=== PATIENT | male | born 1940 | race Caucasian/White ===

== ENCOUNTER 2019-02-17 10:48 | Observation (INO) | payer MEDICARE ==
[2019-02-17 11:53] LABS: Absolute Lymphocytes (CBC) 0.9 K/uL (0.7-4.9); Basophils % 1.4 % (0-1.3); Hematocrit 39.1 % (39.6-49.0); Lymphocytes % 13.1 % (15.3-44.8); MPV 9.3 fL (7.6-11.3)
[2019-02-17] MEDS ORDERED: ASPIRIN 81 MG CHEWABLE TABLET ONE (11:57)
[2019-02-17] MEDS ORDERED: DIGOXIN 0.25 MG/ML AMP ONE (11:57)
--- NOTE | 2019-02-17 11:59 | RAD REPORT ---
EXAM DESCRIPTION: RAD - Chest Pa And Lat (2 Views) - 02/17/2019 11:51 am CLINICAL HISTORY: PALPITATIONS Chest pain. COMPARISON: CHEST PA AND LAT 2 VIEW dated 04/07/2014; CHEST SINGLE VIEW dated 06/04/2013; CHEST SINGL E VIEW dated 11/18/2011 TECHNIQUE: PA and lateral views of the chest were obtained. FINDINGS: The lungs are hyperexpanded compatible with COPD. The heart is mildly enlarged in size. No fracture or aggressive bony process. IMPRESSION: COPD without acute process identified.
[2019-02-17 12:09] LABS: Protime INR 0.97
[2019-02-17 12:25] LABS: Albumin 3.1 g/dL (3.4-5.0); Bilirubin Direct 0.2 mg/dL (0-0.2); Bilirubin Total 0.7 mg/dL (0.2-1.0); Magnesium 2.3 mg/dL (1.8-2.4); Potassium 3.9 mmol/L (3.5-5.1); Protein, Total 6.2 g/dL (6.4-8.2); Thyroid Stimulating Hormone 1.68 uIU/mL (0.360-3.740); Troponin (Emerg Dept Use Only) 0.05 ng/mL (0.0-0.045)
--- NOTE | 2019-02-17 12:37 | EKG ---
Test Date: 2019-02-17 Test Time: 10:55:23 Portable Power Tool Repairer: GARETT MEASUREMENT RESULTS: Intervals: Rate: 113 MT: QRSD: 76 QT: 324 QTc: 444 [place]: P: MT: QRS: 10 T: 63 INTERPRETIVE STATEMENTS: Atrial fibrillation with rapid ventricular response with premature ventricular or aberrantly conducted complexes Nonspecific ST and T wave abnormality Abnormal ECG Compared to ECG 06/04/2013 22:05:24 Ventricular premature complex(es) now present ST (T wave) deviation now present Sinus rhythm no longer present Electronically Signed On 02-17-19 12:36:21 CDT by Juan Strickland
[2019-02-17] MEDS ORDERED: METOPROLOL TAR 50 MG TAB ONE (12:45)
[2019-02-17 12:48] LABS: Urine Blood NEGATIVE (NEG); Urine Glucose NEGATIVE (NEG); Urine Protein NEGATIVE (NEG); Urine pH 6.5 (5.0-7.0)
[2019-02-17 12:49] LABS: Urine Bacteria <20 /HPF (NONE SEEN); Urine Culture Reflex Order NOT NEEDED; Urine RBC <5 /HPF (NONE SEEN)
--- NOTE | 2019-02-17 12:55 | ER ---
Nurse's Notes [facility] Name: Shelton Newman Age: 78 yrs Sex: Male : 1940 Arrival Date: 02/17/2019 Time: 10:52 Bed 2 Private MD: Diagnosis: atrial fibrillation with RVR Presentation: 02/17 10:52 Presenting complaint: EMS states: irregular pulse palpated by [place] nurse and pt aa5 was sent here per [place] MD. Pt denies any complaints, denies previous hx of irregular pulse. 10:52 Transition of care: patient was not received from another setting of care. Onset of aa5 symptoms was February 17, 2019. Risk Assessment: Do you want to hurt yourself or someone else? Patient reports no desire to harm self or others. Initial Sepsis Screen: Does the patient meet any 2 criteria? HR > 90 bpm. Does the patient have a suspected source of infection? No. Patient's initial sepsis screen is negative. Care prior to arrival: None. 10:52 Acuity: SEBASTIEN 2 aa5 10:52 Method Of Arrival: EMS: [facility] aa5 Historical: - Allergies: 10:52 Augmentin; aa5 10:52 Oxycodone; aa5 - Home Meds: 10:52 lisinopril-hydrochlorothiazide 20-12.5 mg oral tab 2 tab once daily [Active]; metformin aa5 500 mg Oral Tb24 1 tab once daily [Active]; gabapentin 100 mg oral cap 2 caps [Active]; aspirin 81 mg Oral chew 1 tab PRN [Active]; pramipexole 0.25 mg oral tab at bedtime [Active]; rosuvastatin 10 mg oral tab 1 tab once daily [Active]; buspirone 5 mg Oral tab daily for anxiety [Active]; - PMHx: 10:52 Hypertension; Anxiety; Hyperlipidemia; Diabetes - NIDDM; aa5 - PSHx: 10:52 Hernia repair; Knee surgery; Vasectomy; Elbow surgery; aa5 - Social history:: Smoking status: Patient/guardian denies using tobacco, The patient lives with spouse. - Ebola Screening: : No symptoms or risks identified at this time. - Family history:: not pertinent. - Hospitalizations: : No recent hospitalization is reported. Screenin:19 Abuse screen: Denies threats or abuse. Nutritional screening: No deficits noted. aa5 Tuberculosis screening: No symptoms or risk factors identified. Fall Risk None identified. Assessment: 10:52 General: Appears comfortable, Behavior is calm, cooperative. Pain: Denies pain. Neuro: aa5 Level of Consciousness is awake, alert, obeys commands, Oriented to person, place, time, situation. Cardiovascular: Heart tones S1 S2 present Rhythm is atrial fibrillation with rapid ventricular response. Respiratory: Airway is patent Respiratory effort is even, unlabored, Respiratory pattern is regular, symmetrical. GI: Abdomen is obese. : No signs and/or symptoms were reported regarding the genitourinary system. EENT: No signs and/or symptoms were reported regarding the EENT system. Derm: Skin is pink, warm \T\ dry. Musculoskeletal: Range of motion: intact in all extremities. 11:42 Reassessment: Pt taken to radiology . aa5 12:00 Reassessment: Pt back from radiology, pt assisted to restroom by cable splicing technician at this time. .aa5 12:11 Reassessment: Patient is alert, oriented x 3, equal unlabored respirations, skin aa5 warm/dry/pink. Patient denies pain at this time. Pt placed back in bed. . 12:12 Cardiovascular: Rhythm is atrial fibrillation with rapid ventricular response. aa5 12:30 Reassessment: Pt sitting up in bed eating lunch, pt tolerating well. . aa5 12:51 Reassessment: Patient appears in no apparent distress at this time. Patient and/or ph family updated on plan of care and expected duration. Pain level reassessed. Patient is alert, oriented x 3, equal unlabored respirations, skin warm/dry/pink. Pt sitting up at bedside talking w/ visitors, PO medication administered, pt denies discomfort at this time. 12:52 Cardiovascular: Rhythm is atrial fibrillation with rapid ventricular response. aa5 13:10 Cardiovascular: Rhythm is atrial fibrillation. aa5 14:00 Reassessment: Patient is alert, oriented x 3, equal unlabored respirations, skin aa5 warm/dry/pink. Awaiting room assignment, pt notified of wait time. Family at bedside. . 14:00 Cardiovascular: Rhythm is atrial fibrillation. aa5 15:00 Reassessment: Patient is alert, oriented x 3, equal unlabored respirations, skin aa5 warm/dry/pink. Patient denies pain at this time. Pt sitting up in bed. Pt notified of wait time for transfer to room 229. Unsuccessful attempt to call report to admitting nurse. . 15:00 Cardiovascular: Rhythm is atrial fibrillation. aa5 16:23 Reassessment: Patient is alert, oriented x 3, equal unlabored respirations, skin aa5 warm/dry/pink. Vital Signs: 10:52 BP 124 / 86; Pulse 112; Resp 18 S; Temp 97.9(O); Pulse Ox 95% on R/A; Weight 155.13 kg aa5 (M); Height 5 ft. 10 in. (177.80 cm) (R); Pain 0/10; 12:12 BP 124 / 80; Pulse 110; Resp 20 S; Pulse Ox 96% on R/A; aa5 12:52 BP 124 / 80; Pulse 103; Resp 18; Pulse Ox 96% on R/A; ph 13:10 BP 125 / 81; Pulse 89; Resp 18 S; Pulse Ox 96% on R/A; aa5 14:00 BP 125 / 81; Pulse 98; Resp 18 S; Temp 98.0(TE); Pulse Ox 96% on R/A; Pain 0/10; aa5 15:00 BP 111 / 64; Pulse 76; Resp 18 S; Pulse Ox 96% on R/A; Pain 0/10; aa5 10:52 Body Mass Index 49.07 (155.13 kg, 177.80 cm) aa5 ED Course: 10:52 Patient arrived in ED. aa5 10:52 Arm band placed on Patient placed in an exam room, on a stretcher. EKG completed in aa5 triage. Results shown to MD. 10:52 Patient has correct armband on for positive identification. Placed in gown. Bed in low aa5 position. Call light in reach. Side rails up X2. orthodontic assistant on. Pulse ox on. NIBP on. 10:53 Hazel Ramirez, RN is Primary Nurse. aa5 10:57 Marino Feldman MD is Attending Physician. tx 11:00 EKG done, by windows deployment technician. reviewed by Marino Feldman MD. at1 11:15 Triage completed. aa5 11:19 No provider procedures requiring assistance completed. Patient maintains SpO2 aa5 saturation greater than 95% on room air. 11:40 Initial lab(s) drawn, by me, sent to lab. Inserted saline lock: 20 gauge in right aa5 antecubital area, using aseptic technique. Blood collected. 11:56 Chest Pa And Lat (2 Views) XRAY In Process Unspecified. EDMS 12:53 Reagan Davis MD is Hospitalizing Provider. tx 16:15 Patient admitted, IV remains in place. aa5 Administered Medications: 12:12 Drug: Aspirin Chewable Tablet 324 mg Route: PO; aa5 12:12 Drug: Digoxin 0.5 mg Route: IVP; Site: right antecubital; aa5 12:51 Drug: Metoprolol 100 mg Route: PO; ph 13:57 Drug: Lovenox 1 mg/kg {Note: 100mg to left lower abdomen and 60mg to right lower aa5 abdomen. .} Route: Sub-Q; Site: left lower abdomen; Outcome: 12:54 Decision to Hospitalize by Provider. wa 16:23 Admitted to Tele accompanied by tech, via wheelchair, with chart, Report called to demetrio Mancia RN 16:23 Condition: stable 16:23 Instructed on the need for admit, Demonstrated understanding of instructions. 16:35 Patient left the ED. aa5 Signatures: Dispatcher [employer] EDFL Hazel Ramirez RN RN aa5 Collette Torres, licensed marine engineer EKG Tat1 Mckayla Dash RN RN [facility], MD MORRO Pichardo [place] Corrections: (The following items were deleted from the chart) 16:41 16:15 Admitted to Tele accompanied by tech, via wheelchair, with chart, Report called aa5 to BENOIT Mancia Amy 16:41 16:15 Condition: stable aa aa 16:41 16:15 Instructed on the need for admit, Demonstrated understanding of instructions, aa5 aa 16:41 16:40 Patient left the ED. aa5 aa5
--- NOTE | 2019-02-17 12:56 | EDPHYS ---
Physician Documentation [facility] Name: Shelton Newman Age: 78 yrs Sex: Male : 1940 Arrival Date: 02/17/2019 Time: 10:52 Bed 2 Private MD: ED Physician Marino Feldman HPI: 02/17 12:35 This 78 yrs old Male presents to ER via EMS with complaints of Irregular wa Pulse. 12:35 78 yo M sent here for irregular and fast HR. states was at the [facility] for routine wa check where he was told to come in because his HR is irregular and fast. denies BIGGS, dizziness, chest pain or SOB. denies known h/o same in the past. On review of systems, states get a bit more winded when taking her of his ill the past 3 weeks. otherwise states feels fine. denies palpitations. Onset: The symptoms/episode began/occurred today. Severity of symptoms: At their worst the symptoms were moderate in the emergency department the symptoms are unchanged. The patient has not experienced similar symptoms in the past. The patient has been recently seen by a physician: earlier today, at the [facility]. as noted above under HPI. Historical: - Allergies: 10:52 Augmentin; aa5 10:52 Oxycodone; aa5 - Home Meds: 10:52 lisinopril-hydrochlorothiazide 20-12.5 mg oral tab 2 tab once daily [Active]; metformin aa5 500 mg Oral Tb24 1 tab once daily [Active]; gabapentin 100 mg oral cap 2 caps [Active]; aspirin 81 mg Oral chew 1 tab PRN [Active]; pramipexole 0.25 mg oral tab at bedtime [Active]; rosuvastatin 10 mg oral tab 1 tab once daily [Active]; buspirone 5 mg Oral tab daily for anxiety [Active]; - PMHx: 10:52 Hypertension; Anxiety; Hyperlipidemia; Diabetes - NIDDM; aa5 - PSHx: 10:52 Hernia repair; Knee surgery; Vasectomy; Elbow surgery; aa5 - Social history:: Smoking status: Patient/guardian denies using tobacco, The patient lives with spouse. - Ebola Screening: : No symptoms or risks identified at this time. - Family history:: not pertinent. - Hospitalizations: : No recent hospitalization is reported. ROS: 12:43 Constitutional: Negative for fever, chills, and weight loss, Eyes: Negative for injury, wa pain, redness, and discharge, ENT: Negative for injury, pain, and discharge, Neck: Negative for injury, pain, and swelling, Cardiovascular: Negative for chest pain, palpitations, and edema, Abdomen/GI: Negative for abdominal pain, nausea, vomiting, diarrhea, and constipation, Back: Negative for injury and pain, : Negative for injury, bleeding, discharge, and swelling, MS/Extremity: Negative for injury and deformity, Skin: Negative for injury, rash, and discoloration, Neuro: Negative for headache, weakness, numbness, tingling, and seizure, Psych: Negative for depression, anxiety, suicide ideation, homicidal ideation, and hallucinations. 12:43 Respiratory: Positive for shortness of breath, on exertion. Negative for cough, sputum production, wheezing. 12:43 All other systems are negative. Exam: 12:44 Constitutional: This is a well developed, well nourished patient who is awake, alert, wa and in no acute distress. Head/Face: Normocephalic, atraumatic. Eyes: Pupils equal round and reactive to light, extra-ocular motions intact. Lids and lashes normal. Conjunctiva and sclera are non-icteric and not injected. Cornea within normal limits. Periorbital areas with no swelling, redness, or edema. ENT: Nares patent. No nasal discharge, no septal abnormalities noted. Tympanic membranes are normal and external auditory canals are clear. Oropharynx with no redness, swelling, or masses, exudates, or evidence of obstruction, uvula midline. Mucous membranes moist. Neck: Trachea midline, no thyromegaly or masses palpated, and no cervical lymphadenopathy. Supple, full range of motion without nuchal rigidity, or vertebral point tenderness. No Meningismus. Chest/axilla: Normal chest wall appearance and motion. Nontender with no deformity. No lesions are appreciated. Respiratory: Lungs have equal breath sounds bilaterally, clear to auscultation and percussion. No rales, rhonchi or wheezes noted. No increased work of breathing, no retractions or nasal flaring. Abdomen/GI: Soft, non-tender, with normal bowel sounds. No distension or tympany. No guarding or rebound. No evidence of tenderness throughout. Back: No spinal tenderness. No costovertebral tenderness. Full range of motion. Skin: Warm, dry with normal turgor. Normal color with no rashes, no lesions, and no evidence of cellulitis. MS/ Extremity: Pulses equal, no cyanosis. Neurovascular intact. Full, normal range of motion. Neuro: Awake and alert, GCS 15, oriented to person, place, time, and situation. Cranial nerves II-XII grossly intact. Motor strength 5/5 in all extremities. Sensory grossly intact. Cerebellar exam normal. Normal gait. Psych: Awake, alert, with orientation to person, place and time. Behavior, mood, and affect are within normal limits. 12:44 Cardiovascular: Rate: tachycardic, Rhythm: irregularly irregular, Pulses: no pulse deficits are appreciated, Heart sounds: normal, Edema: is not appreciated, JVD: is not appreciated. 12:44 Respiratory: the patient does not display signs of respiratory distress, Respirations: normal, Breath sounds: are clear throughout, Respiratory rate: normal Vital Signs: 10:52 BP 124 / 86; Pulse 112; Resp 18 S; Temp 97.9(O); Pulse Ox 95% on R/A; Weight 155.13 kg aa5 (M); Height 5 ft. 10 in. (177.80 cm) (R); Pain 0/10; 12:12 BP 124 / 80; Pulse 110; Resp 20 S; Pulse Ox 96% on R/A; aa5 12:52 BP 124 / 80; Pulse 103; Resp 18; Pulse Ox 96% on R/A; ph 13:10 BP 125 / 81; Pulse 89; Resp 18 S; Pulse Ox 96% on R/A; aa5 14:00 BP 125 / 81; Pulse 98; Resp 18 S; Temp 98.0(TE); Pulse Ox 96% on R/A; Pain 0/10; aa5 15:00 BP 111 / 64; Pulse 76; Resp 18 S; Pulse Ox 96% on R/A; Pain 0/10; aa5 10:52 Body Mass Index 49.07 (155.13 kg, 177.80 cm) aa5 MDM: 10:57 Patient medically screened. wa 12:45 Differential Diagnosis pt in afib RVR of unknown duration. will attempt rate lowering wa with meds. may be conversion? will work to exclude other acute illnesses. 12:48 Data reviewed: vital signs, nurses notes, lab test result(s), EKG, radiologic studies. wi Test interpretation: by ED physician or midlevel provider: labs noted for nml TSH. nml CBC. Cl 111. glu 126. BNP 1142. mild trop elevation at 0.05. 12:50 Physician consultation: Reagan Davis MD was called at 12:51. ED course: pt given dig wa and metoprolol. ASA given. will admit for further cardiac eval. . 13:43 Test interpretation: by ED physician or midlevel provider: CXR noted for COPD. no acute wa process.. Response to treatment: the patient's symptoms have markedly improved after treatment, HR in 80s and 90s. still afib but rate controlled. 02/17 11:36 Order name: Basic Metabolic Panel; Complete Time: 12:47 02/17 11:36 Order name: CBC with Diff; Complete Time: 12:18 02/17 11:36 Order name: LFT's; Complete Time: 12:47 02/17 11:36 Order name: Magnesium; Complete Time: 12:48 02/17 11:36 Order name: NT PRO-BNP; Complete Time: 12:47 02/17 11:36 Order name: PT-INR; Complete Time: 12:18 02/17 11:36 Order name: Troponin (emerg Dept Use Only); Complete Time: 12:48 02/17 11:37 Order name: Chest Pa And Lat (2 Views) XRAY; Complete Time: 12:18 02/17 11:37 Order name: Urine Microscopic Only; Complete Time: 12:53 02/17 11:37 Order name: TSH; Complete Time: 12:47 02/17 12:13 Order name: Urine Dipstick--Ancillary (enter results); Complete Time: 12:53 bd 02/17 11:21 Order name: Diet Ada 1800 Lanre; Complete Time: 11:21 aa5 02/17 11:36 Order name: EKG; Complete Time: 11:37 02/17 11:36 Order name: Cardiac monitoring; Complete Time: 11:37 02/17 11:36 Order name: EKG - Nurse/Tech; Complete Time: 11:37 02/17 11:36 Order name: IV Saline Lock; Complete Time: 11:45 wi 02/17 11:36 Order name: Labs collected and sent; Complete Time: 11:45 wi 02/17 11:36 Order name: O2 Per Protocol; Complete Time: 11:37 wi 02/17 11:36 Order name: O2 Sat Monitoring; Complete Time: 11:37 wi 02/17 11:37 Order name: Urine Dipstick-Ancillary (obtain specimen); Complete Time: 12:35 wi Administered Medications: 12:12 Drug: Aspirin Chewable Tablet 324 mg Route: PO; aa5 12:12 Drug: Digoxin 0.5 mg Route: IVP; Site: right antecubital; aa5 12:51 Drug: Metoprolol 100 mg Route: PO; ph 13:57 Drug: Lovenox 1 mg/kg {Note: 100mg to left lower abdomen and 60mg to right lower aa5 abdomen. .} Route: Sub-Q; Site: left lower abdomen; Disposition: 02/17/19 12:54 Hospitalization ordered by Reagan Davis for Inpatient Admission. Preliminary diagnosis is atrial fibrillation with RVR. - Bed requested for Telemetry/MedSurg (Inpatient). - Status is Inpatient Admission. aa5 - Condition is Fair. - Problem is new. - Symptoms have improved. UTI on Admission? No Critical care time excluding procedures: 13:45 Critical care time: Bedside Care: 15 minutes, Consultation: 5 minutes, Family wa Intervention: 10 minutes. Total time: 30 minutes Signatures: Dispatcher [employer] EDMS Christel Bhardwaj Audri, RN RN [facility] Mckayla Dash RN RN [facility], MD MORRO Pichardo [place] Corrections: (The following items were deleted from the chart) 14:12 12:54 Hospitalization Ordered by Reagan Davis MD for Inpatient Admission. Preliminary bd diagnosis is atrial fibrillation with RVR. Bed requested for Telemetry/MedSurg (Inpatient). Status is Inpatient Admission. Condition is Fair. Problem is new. Symptoms have improved. UTI on Admission? No. wi 16:40 14:12 02/17/2019 12:54 Hospitalization Ordered by Reagan Davis MD for Inpatient aa5 Admission. Preliminary diagnosis is atrial fibrillation with RVR. Bed requested for Telemetry/MedSurg (Inpatient). Status is Inpatient Admission. Condition is Fair. Problem is new. Symptoms have improved. UTI on Admission? No. bd
[2019-02-17] MEDS ORDERED: ENOXAPARIN 100 MG/ML SYR SQ ONE (13:51)
[2019-02-17] MEDS ORDERED: ENOXAPARIN 60 MG/0.6 ML SQ ONE (13:51)
[2019-02-17] MEDS ORDERED: METOPROLOL TARTRATE 5 MG/5 ML INJ IV PRN (16:42)
[2019-02-17] MEDS ORDERED: ONDANSETRON 4 MG/2 ML VIAL IV PRN (16:42)
[2019-02-17] MEDS ORDERED: ACETAMINOPHEN 500 MG TAB PO PRN (16:42)
[2019-02-17] MEDS: INSULIN -REGULAR HUMAN 50 UNIT/0.5 ML ML SQ SCH ×2 (16:42→21:00)
[2019-02-17 16:49] VITALS: BMI 35.3
[2019-02-17] MEDS ORDERED: BUSPIRONE HCL 5 MG TABLET PO PRN (17:03)
[2019-02-17] MEDS: METOPROLOL TAR 25 MG TAB PO SCH (17:50)
[2019-02-17] MEDS: NA CHLORIDE 0.9% 1,000 ML IV SCH (17:51)
[2019-02-17] MEDS ORDERED: ENOXAPARIN 100 MG/ML SYR SQ SCH (21:00)
[2019-02-17] MEDS ORDERED: ENOXAPARIN 60 MG/0.6 ML SQ SCH (21:00)
[2019-02-17] MEDS ORDERED: PRAMIPEXOLE 0.25 MG TAB PO SCH (21:00)
[2019-02-17] MEDS ORDERED: ROSUVASTATIN 10 MG TAB PO SCH (21:00)
[2019-02-17] MEDS: Enoxaparin 120 MG/0.8 ML SYR SQ SCH (21:37)
--- NOTE | 2019-02-18 00:49 | HP ---
Date of Admission: 02/17/2019 Primary Care Physician: POLO. Chief Complaint: Abnormal heart rhythm. Code status: full History Of Present Illness: Patient is a 78-year-old male with past medical history of hypertension, diabetes, sleep apnea, restless legs syndrome, hyperlipidemia, generalized anxiety disorder, comes in to the hospital from the [place] for atrial fibrillation with RVR. Rate was in the 120s. Patient does not have a history of AFib, was at the [place] for routine lab work. Patient does report some shortness of breath with minimal exertion and diaphoresis. Denies any significant palpitations. No chest pain. Patient's symptoms are constant, moderate, progressively worsening. His workup revealed a troponin of 0.05 and TSH was normal as was the magnesium level. Patient was given digoxin x1, metoprolol, and referred for admission. Past Medical History: Diabetes mellitus type 2 with neuropathy; obstructive sleep apnea, on CPAP; restless legs syndrome; hypertension; hyperlipidemia; generalized anxiety disorder. Surgical History: Knee surgery and replacements on both sides, hernia replacement. Allergies: AUGMENTIN AND OXYCODONE. Medications: List reviewed. Family History: No premature history of coronary artery disease in the family. Social History: Patient quit smoking when he was 51 years old. Drinks alcohol rarely. Review of Systems: 10-point system reviewed, negative except as per HPI. Physical Examination: Vital Signs: Blood pressure 124/86, pulse 112, respirations 18, temperature 97.9, O2 95% on room air. General: Awake, alert, oriented x3, morbidly obese male, BMI 49, in some mild distress. HEENT: Normocephalic, atraumatic. PERRLA. EOMI. Moist mucous membranes. Oropharynx is clear. Poor dentition. Conjunctivae anicteric. Neck: Supple. No JVD. Trachea midline. CV: S1, S2. Irregularly irregular. Peripheral pulses present. Respiratory: Moving air well bilaterally. No wheezing or stridor. No use of accessory muscles. Gastrointestinal: Abdomen is soft, nontender, nondistended. Positive bowel sounds. No guarding or rigidity. Extremities: No clubbing, cyanosis. Patient has 2+ edema of bilateral lower extremities. No calf tenderness. Neuro: Cranial nerves 2 through 12 intact grossly. No focal neurological deficits. Speech is normal. Psych: Mood is okay. Affect is full. Insight and judgment are good. Skin: No rashes. Normal skin turgor. Patient does have some ecchymosis on his upper extremities. Laboratory Data: UA is negative. Sodium 144, potassium 3.9, chloride 111, CO2 30, BUN 19, creatinine 0.9, glucose 126, calcium 8.5. Magnesium 2.3. Troponin 0.05. BNP 1142. TSH is 1.68. INR 0.97. WBC 7.2, H and H 13.3 and 39.1, platelets 194, neutrophils 76%. Chest x-ray personally reviewed, shows COPD without acute process identified, lungs hyperexpanded. EKG shows AFib with RVR , rate of 113, nonspecific ST-T wave abnormalities. Assessment: 78-year-old male with: 1. New-onset atrial fibrillation with rapid ventricular response, improved with digoxin and metoprolol. We will start on rate control and Lovenox for prophylaxis. Cardiology has been consulted. Patient has seen Dr. Strickland in the past. We will obtain echocardiogram. Magnesium level is normal. TSH is normal as well. May be related to his longstanding sleep apnea, which was untreated. 2. Essential hypertension, stable. We will resume home medications as appropriate. 3. Mixed hyperlipidemia. Continue statin. 4. Generalized anxiety disorder. Continue buspirone. 5. Restless legs syndrome. Continue pramipexole. Stable. 6. Obstructive sleep apnea. We will ask patient to bring in his own CPAP at night. 7. Diabetes mellitus type 2 with hyperglycemia and neuropathy. We will continue with sliding scale insulin. Monitor blood glucose levels. 8. Morbid obesity. BMI of 49. Plan: Admit patient to [facility], [facility] as observation. NAWAF Voice ID: [id number]
--- NOTE | 2019-02-18 00:58 | CON ---
Date of Consultation: 02/17/[address] Davis's service on 02/17/2019. I saw the patient on 02/17/2019. Reason For Consultation: Atrial fibrillation. History Of Present Illness: Mr. Newman is a 78-year-old white male. He is a patient at the [facility]. He went there for a routine checkup and was noted to be in atrial fibrillation, and was sent to the emergency room for admission. Mr. Newman has been complaining of some dyspnea on exertion, but no chest pain. No nausea, vomiting, diaphoresis, PND, orthopnea, pedal edema, palpitation, or syncop e. He is really asymptomatic from an atrial fibrillation standpoint. He does not have any palpitati ons with that. Past Medical History: Includes diabetes, hypertension, dyslipidemia, anxiety, obesity, and sleep system configuration specialist ea. Review of Systems: Negative. Social History: Negative for tobacco. Family History: Negative for heart disease. Medications: Include aspirin, lisinopril, buspirone, metformin, Zocor, and hydrochlorothiazide. Physical Examination: Vital signs: Mr. Newman is over 300 pounds. He is in atrial fibrillation, rate of 110. General: He is in no acute distress. HEENT: Negative. Neck: Supple with no bruit. Chest: Clear. Cardiac: Reveals atrial fibrillation. Abdomen: Obese, but benign. Extremities: Reveal no clubbing, cyanosis, or edema. Skin: Dry and intact. Neurologic: He is nonfocal. Pulses are present distally bilaterally. Diagnostic Data: He had a troponin of 0.05. BNP was 1142. Chest x-ray showed COPD. EKG showed atr ial fibrillation. Rest of the blood work was normal. Impression And Plan: 1.Atrial fibrillation of unknown duration. The patient does not have any palpitation with that. He is to be on Lovenox for now and a beta-cristian. We can switch him to metoprolol and one of the anti coagulants, preferably Eliquis 5 mg b.i.d. If his rate is controlled and he is asymptomatic, we can send him home on metoprolol and Eliquis, and then see how he does with that down the road. We cannot cardiovert him for at least 3 weeks after being placed on Eliquis. He can go home if his echo is no rmal on metoprolol and Eliquis, and I will see him in the office soon for electric cardioversion in 3 weeks. He may need an outpatient stress test eventually has not had them for a long time. 2.Chronic obstructive pulmonary disease. 3.Allergies to Augmentin and codeine. 4.Obesity. 5.Sleep apnea. 6.Hypertension, well controlled. 7.Diabetes, well controlled. 8.Dyslipidemia, well controlled. 9.Elevated troponin and BNP secondary to rapid atrial fibrillation. We will continue to follow Mr. Newman. We will see what his echo shows. Options beside beta-blockers and Eliquis certainly include cardioversion, sotalol and/or ablation down the road. Personally, I think if he is asymptomatic, I would continue the metoprolol and Eliquis, and plan a cardioversion in 3 weeks. KRISHNA/ELIAZAR Voice ID: [id number] Report ID: [id number]
[2019-02-18] MEDS: NA CHLORIDE 0.9% 1,000 ML IV SCH (04:17)
[2019-02-18] MEDS: METOPROLOL TAR 25 MG TAB PO SCH (05:28)
[2019-02-18 06:14] LABS: Absolute Lymphocytes (CBC) 1.6 K/uL (0.7-4.9); Basophils % 0.5 % (0-1.3); Hematocrit 37.9 % (39.6-49.0); Lymphocytes % 18.6 % (15.3-44.8); MPV 9.8 fL (7.6-11.3); RBC Red Blood Cell Count 4.13 M/uL (4.33-5.43)
[2019-02-18 06:29] LABS: Magnesium 2.3 mg/dL (1.8-2.4); Phosphorus 2.7 mg/dL (2.5-4.9); Potassium 3.7 mmol/L (3.5-5.1)
[2019-02-18] MEDS: INSULIN -REGULAR HUMAN 50 UNIT/0.5 ML ML SQ SCH ×2 (07:30→11:30)
[2019-02-18] MEDS: Enoxaparin 120 MG/0.8 ML SYR SQ SCH (08:27)
[2019-02-18] MEDS ORDERED: GABAPENTIN 100 MG CAP PO SCH (09:00)
[2019-02-18] MEDS ORDERED: LISINOPRIL 20 MG TAB PO SCH (09:00)
[2019-02-18] MEDS ORDERED: hydroCHLOROthiazide 25 MG TAB PO SCH (09:00)
[2019-02-18] MEDS ORDERED: HOME MED 1 EA UNK (Lisinopril [Zestril] 40 MG) PO SCH (09:00)
[2019-02-18] MEDS ORDERED: ASPIRIN 81 MG CHEWABLE TABLET PO SCH (09:00)
[2019-02-18] MEDS ORDERED: POTASSIUM CL SA 10 MEQ TAB PO ONE (09:00)
--- NOTE | 2019-02-18 10:57 | ECHO ---
HEIGHT: 5 ft 11 in WEIGHT: 253 lb 8.506 oz DATE OF STUDY: 02/18/[address]: Reagan Davis MD 2-DIMENSIONAL: YES M.MODE: YES DOPPLER: YES COLOR FLOW: YES TDS: NO PORTABLE: NO DEFINITY: NO BUBBLE STUDY: NO DIAGNOSIS: ATRIAL FIBRILLATION CARDIAC HISTORY: CATHERIZATION: NO SURGERY: NO PROSTHETIC VALVE: NO PACEMAKER: NO MEASUREMENTS (cm) DIASTOLIC (NORMALS) SYSTOLIC (NORMALS) IVSd 1.3 (0.6-1.2) LA Diam 5.6 (1.9-4.0) LVEF 63% LVIDd 4.1 (3.5-5.7) LVIDs 2.7 (2.0-3.5) %FS 33% LVPWd 1.3 (0.6-1.2) Ao Diam 2.7 (2.0-3.7) 2 DIMENSIONAL ASSESSMENT: RIGHT ATRIUM: NORMAL LEFT ATRIUM: DILATED RIGHT VENTRICLE: NORMAL LEFT VENTRICLE: LEFT VENTRICULAR HYPERTROPHY TRICUSPID VALVE: NORMAL MITRAL VALVE: NORMAL PULMONIC VALVE: NORMAL AORTIC VALVE: SCLEROSIS PERICARDIAL EFFUSION: NONE AORTIC ROOT: NORMAL LEFT VENTRICULAR WALL MOTION: NORMAL. DOPPLER/COLOR FLOW: MILD MITRAL, TRICUSPID AND AORTIC REGURGITATION. MILD PULMONARY HYPERTENSION. ESTIMATED RIGHT VENTRICULAR SYSTOLIC PRESSURE 41mmHg. NO AORTIC STENOSIS. COMMENTS: NORMAL LEFT VENTRICULAR EJECTION FRACTION. LEFT VENTRICULAR HYPERTROPHY. DILATED LEFT ATRIUM. AORTIC SCLEROSIS WITH NO AORTIC STENOSIS. MILD AORTIC, MITRAL AND TRICUSPID REGURGITATION. MILD PULMONARY HYPERTENSION. TECHNOLOGIST: SHAILA [facility]
[2019-02-18 12:23] VITALS: O2SAT 97
[2019-02-18 12:26] VITALS: BP 127/67; TEMP 97.1
--- NOTE | 2019-02-19 05:50 | DS ---
Date of Discharge: 02/18/2019 Consultants: Dr. Strickland with Cardiology. Procedures: None. Discharge Diagnoses: 1.Atrial fibrillation with rapid ventricular response, improved. 2.Essential hypertension, stable. 3.Mixed hyperlipidemia, on statin. 4.Generalized anxiety disorder, stable. 5.Restless legs syndrome, stable. 6.Obstructive sleep apnea, on CPAP. 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 8.Morbid obesity, body mass index of 49. 9.Hypertensive heart disease. 10.Mild pulmonary hypertension. Hospital Course: Patient is a 78-year-old male who came into the hospital from the [place] for atrial fib rillation with RVR. Patient did have some shortness of breath and diaphoresis with exertion. Patien t's workup revealed elevated troponin level of 0.05, likely due to the atrial fibrillation no ACS was felt to be the case. Patient's thyroid studies were normal. Electrolytes including magnesium were also normal. The patient had an echocardiogram done and was evaluated by Cardiology. His ejection f raction was 63%. He had some left ventricular hypertrophy and mild pulmonary hypertension along with mild aortic mitral and tricuspid regurg. He also has some aortic sclerosis. Patient does have long standing history of hypertension as well as obstructive sleep apnea and morbid obesity, likely risk f actors leading to atrial fibrillation. He was started on metoprolol. He was given dose of digoxin a nd was started on blood thinners. He remained in atrial fibrillation, however, his rate became contr olled, did not have any further shortness of breath or diaphoresis. He was able to ambulate without difficulty. Plan will be to continue on Eliquis as an outpatient for 3 weeks prior to cardioversion. Patient was then cleared for discharge from cardiology standpoint. Medications: List reviewed. Followup: Follow up with primary care physician in 2-3 days. Follow up lace roller, Dr. Strickland in 2 weeks. Return to ER for worsening condition. Diet: Heart healthy. Activity: As tolerated. Physical Examination: General: Awake, alert, oriented x3. No acute distress. CV: S1, S2. No murmurs. Respiratory: Moving air well bilaterally. Gastrointestinal: Abdomen is soft, nontender, nondistended. Positive bowel sounds. Extremities: No clubbing, cyanosis, or edema. Neurologic: Nonfocal. SA/MODL Voice ID: [id number] Report ID: [id number]
== END 2019-02-18 14:12 | disposition home or self-care (01) ==
LOC: ER 10:48 → ERHOLD 13:17 → 2ND 16:25
PROVIDERS: ADMIT Family Medicine; ATTEND Family Medicine
DX: I48.91 Unspecified atrial fibrillation (principal); I10 Essential (primary) hypertension; E78.2 Mixed hyperlipidemia; F41.1 Generalized anxiety disorder; G25.81 Restless legs syndrome; E11.9 Type 2 diabetes mellitus without complications; G47.33 Obstructive sleep apnea (adult) (pediatric); E11.65 Type 2 diabetes mellitus with hyperglycemia; E66.01 Morbid (severe) obesity due to excess calories; Z68.35 Body mass index [BMI] 35.0-35.9, adult; I11.9 Hypertensive heart disease without heart failure; I27.20 Pulmonary hypertension, unspecified
CPT/HCPCS: 93005; 93306; 85025 ×2; 80048; 36415; 83735 ×2; 84100; 85610; 82947 ×4; 80076; 84443; 84484; 80053; 83880; 71046; 94760 ×2; 94660; 96372; 96374; 99285; J1160; J1650 ×4; J7030 ×2; G0378 ×3; 81003; 81015

== ENCOUNTER 2019-04-20 14:03 | Inpatient (IN) | payer MEDICARE ==
--- NOTE | 2019-04-20 15:31 | RAD REPORT ---
EXAM DESCRIPTION: [place] Single View04/20/2019 2:56 pm CLINICAL HISTORY: fever COMPARISON: January 2019 FINDINGS: Left base is hazy. Main lungs appear clear of acute infiltrate. The heart is markedly enlarged IMPRESSION: Left base is hazy. This could represent a pneumonia or overlying soft tissue. PA and lat eral chest series would be helpful for further evaluation
[2019-04-20] MEDS ORDERED: NA CHLORIDE 0.9% 1,000 ML ONE (15:32)
[2019-04-20] MEDS ORDERED: CEFTRIAXONE/SWI 1gm 2 GM/20 ML SYR ONE (15:32)
[2019-04-20 15:40] LABS: ALT/SGPT 59 U/L (12-78); AST/SGOT 61 U/L (15-37); Absolute Lymphocytes (CBC) 0.4 K/uL (0.7-4.9); Albumin 2.9 g/dL (3.4-5.0); Alkaline Phosphatase 80 U/L (45-117); BUN Blood Urea Nitrogen 16 mg/dL (7-18); Basophils % 0.3 % (0-1.3); Bicarbonate 26 mmol/L (21-32); Bilirubin Direct 0.5 mg/dL (0-0.2); Bilirubin Total 2.1 mg/dL (0.2-1.0); Creatine Phosphokinase 903 U/L (39-308); Glucose Level 129 mg/dL (74-106); Hematocrit 39.8 % (39.6-49.0); Lipase 60 U/L (73-393); Lymphocytes % 2.4 % (15.3-44.8); MPV 9.6 fL (7.6-11.3); Potassium 3.7 mmol/L (3.5-5.1); Protein, Total 6.5 g/dL (6.4-8.2); Sodium Level 139 mmol/L (136-145); Troponin (Emerg Dept Use Only) < 0.02 ng/mL (0.0-0.045)
[2019-04-20 15:43] LABS: Protime INR 2.04
[2019-04-20 15:50] LABS: Urine Blood 2+ (NEG); Urine Glucose NEGATIVE (NEG); Urine Protein 3+ (NEG); Urine Specific Gravity >1.030 (1.005-1.030)
[2019-04-20 16:02] LABS: Urine Bacteria >50 /HPF (NONE SEEN); Urine Culture Reflex Order REFLEXED; Urine RBC <5 /HPF (NONE SEEN)
--- NOTE | 2019-04-20 16:21 | ER ---
Nurse's Notes [facility] Name: Shelton Newman Age: 78 yrs Sex: Male : 1940 Arrival Date: 04/20/2019 Time: 14:05 Bed 5 Private MD: Chan Shaver Diagnosis: Severe sepsis without septic shock;Cystitis Presentation: 04/20 14:32 Presenting complaint: Patient states: ":bladder infection since yesterday morning. " ch dribbling, urgency, frequency, some blood yesterday morning. When I get up and walk around I. Transition of care: patient was not received from another setting of care. Onset of symptoms was April 19, 2019 at 09:00. Risk Assessment: Do you want to hurt yourself or someone else? Patient reports no desire to harm self or others. Initial Sepsis Screen: Does the patient meet any 2 criteria? RR > 20 per min. HR > 90 bpm. Yes Does the patient have a suspected source of infection? Yes: Dysuria/Frequency/Urgency/UTI If YES to both, name of provider notified: Teo MOODY 14:32 Method Of Arrival: Ambulatory 14:32 Acuity: SEBASTIEN 3 ch 14:39 Care prior to arrival: None. 14:47 Note a code sepsis has been called. sg Historical: - Allergies: 14:39 Augmentin; ch 14:39 Oxycodone; ch - Home Meds: 14:39 aspirin 81 mg Oral chew 1 tab PRN [Active]; buspirone 5 mg Oral tab daily for anxiety ch [Active]; gabapentin 100 mg Oral cap 2 caps [Active]; Hydrochlorothiazide Oral [Active]; lisinopril-hydrochlorothiazide 20-12.5 mg Oral tab 2 tab once daily [Active]; metformin 500 mg Oral Tb24 1 tab once daily [Active]; pramipexole 0.25 mg Oral tab at bedtime [Active]; rosuvastatin 10 mg Oral tab 1 tab once daily [Active]; - PMHx: 14:39 Anxiety; Diabetes - NIDDM; Hyperlipidemia; Hypertension; ch - PSHx: 14:39 Hernia repair; Knee surgery; Vasectomy; Elbow surgery; - Immunization history:: Adult Immunizations up to date, Flu vaccine is not up to date. - Social history:: Smoking status: Patient/guardian denies using tobacco. - Ebola Screening: : Patient negative for fever greater than or equal to 101.5 degrees Fahrenheit, and additional compatible Ebola Virus Disease symptoms Patient denies exposure to infectious person Patient denies travel to an Ebola-affected area in the 21 days before illness onset No symptoms or risks identified at this time. Screenin:09 Abuse screen: Denies threats or abuse. Denies injuries from another. Nutritional ch screening: No deficits noted. Tuberculosis screening: No symptoms or risk factors identified. Fall Risk None identified. Assessment: 15:07 General: Appears in no apparent distress. uncomfortable, Behavior is cooperative, ch appropriate for age. Pain: Complains of pain in low back area Pain currently is 3 out of 10 on a pain scale. Neuro: No deficits noted. Cardiovascular: Rhythm is atrial fibrillation. Respiratory: Airway is patent Respiratory effort is even, unlabored. GI: Abdomen is round non-distended, Bowel sounds present X 4 quads. Abd is soft X 4 quads Abdomen is tender to palpation in suprapubic area. : Genitalia appear normal Reports pain urgency, urinary frequency. Derm: Skin is dry, Skin is normal, Skin temperature is hot. Musculoskeletal: Reports weakness in head, neck, chest, right arm, left arm, right leg and left leg, generalized. 15:54 Reassessment: Patient appears in no apparent distress at this time. No changes from previously documented assessment. Patient and/or family updated on plan of care and expected duration. Pain level reassessed. 17:00 Reassessment: Patient appears in no apparent distress at this time. Patient and/or family updated on plan of care and expected duration. Pain level reassessed. pt has BM on BSC, transfers to and from bed with assistance. no s/s of distress, verb understanding of wait for admission. pt has eaten some dinner. Patient states feeling better. Patient states symptoms have improved. 19:31 Reassessment: Patient is alert, oriented x 3, equal unlabored respirations, skin bb warm/dry/pink. pt sitting on side on bed, galvez catheter in place to bedside drain, IV site intact, pt awaiting report called for room 220. 19:51 Reassessment: report called to Chioma LABOY for room 220. bb Vital Signs: 14:39 BP 125 / 77; Pulse 112; Resp 24; Temp 99.1(O); Pulse Ox 94% on R/A; Weight 145.15 kg; ch Height 5 ft. 11 in. (180.34 cm); Pain 0/10; 15:09 BP 114 / 75; Pulse 86; Resp 21; Pulse Ox 98% on R/A; Pain 3/10; ch 15:54 BP 120 / 74; Pulse 102; Resp 30 S; Temp 98.9(O); Pulse Ox 98% on R/A; Pain 2/10; ch 17:31 BP 116 / 76; Pulse 99; Resp 26; Temp 98.9; Pulse Ox 99% on R/A; Pain 2/10; ch 18:30 BP 116 / 69; Pulse 110; Resp 27; Temp 98.8(O); Pulse Ox 96% ; ch 19:46 BP 141 / 68; Pulse 111; Resp 16 S; Temp 98.3(O); Pulse Ox 99% on R/A; bb 14:39 Body Mass Index 44.63 (145.15 kg, 180.34 cm) ch ED Course: 14:05 Patient arrived in ED. mr 14:06 Jl Edward MD is Private Physician. mr 14:06 Chan Shaver DO is Private Physician. mr 14:32 Tanya Richardson, BENOIT is Primary Nurse. ch 14:34 Teo Ramírez PA is PHCP. jr8 14:34 Tha Felton MD is Attending Physician. jr8 14:34 Triage completed. ch 14:39 Arm band placed on right wrist. Patient placed in an exam room. ch 14:57 Chest Single View XRAY In Process Unspecified. EDMS 15:00 First set of blood cultures drawn by me. jb1 15:04 Initial lab(s) drawn, by me, sent to lab. Inserted saline lock: 22 gauge in right jb1 antecubital area, using aseptic technique. Blood collected. 15:09 Patient has correct armband on for positive identification. Placed in gown. Bed in low ch position. Call light in reach. Side rails up X2. Adult w/ patient. quality assurance monitor final on. Pulse ox on. NIBP on. Warm blanket given. Pillow given. 15:09 No provider procedures requiring assistance completed. ch 15:41 Urine collected: Galvez catheter specimen, cloudy, elan colored. jb1 15:55 Galvez cath inserted, using sterile technique, 16 Fr., by nd, balloon inflated, to gravity drainage, urine specimen collected. returned elan urine. Patient tolerated well. 16:19 Reagan Davis MD is Hospitalizing Provider. jr8 19:52 Patient admitted, IV remains in place. bb Administered Medications: 15:34 Drug: Rocephin 2 grams Route: IV; Rate: calculated rate; Site: right antecubital; jl7 15:45 Follow up: IV Status: Completed infusion; IV Intake: 10ml 15:34 Drug: NS 0.9% 1000 ml Route: IV; Rate: 1000 ml; Site: right antecubital; jl7 16:20 Follow up: IV Status: Completed infusion; IV Intake: 1000ml Point of Care Testing: Blood Glucose: 15:00 Blood Glucose: 142 mg/dL; jl7 Ranges: Intake: 15:45 IV: 10ml; Total: 10ml. ch 16:20 IV: 1000ml; Total: 1010ml. Outcome: 16:20 Decision to Hospitalize by Provider. jr8 19:51 Admitted to Tele bb 19:51 Admitted to Tele accompanied by tech, family with patient, via stretcher, room 220, with chart, Report called to Chioma RN 19:51 Condition: stable 19:51 Instructed on the need for admit. 20:03 Patient left the ED. bb Signatures: Dispatcher [employer] EDMS Will Quiroz jb1 Tanya Richardson RN RN Bishnu Peña RN RN Ly Barragan Brenda RN RN Teo Ramírez PA PA jr8 Isabella New RN RN jl7 Corrections: (The following items were deleted from the chart) 14:47 14:32 Note a code sepsis has been called [facility] 15:54 14:32 Initial Sepsis Screen: Does the patient meet any 2 criteria? No. Patient's initial sepsis screen is negative. Does the patient have a suspected source of infection? No. Patient's initial sepsis screen is negative.
--- NOTE | 2019-04-20 16:22 | EDPHYS ---
Physician Documentation [facility] Name: Shelton Newman Age: 78 yrs Sex: Male : 1940 Arrival Date: 04/20/2019 Time: 14:05 Bed 5 Private MD: Chan Shaver ED Physician Tha Felton HPI: 04/20 16:04 This 78 yrs old Male presents to ER via Ambulatory with complaints of Urinary jr8 Problem. 16:04 The patient presents with urinary symptoms, dysuria, hematuria. Onset: The jr8 symptoms/episode began/occurred acutely, yesterday. Modifying factors: The symptoms are alleviated by nothing, the symptoms are aggravated by urinating. Associated signs and symptoms: Pertinent positives: fever, weakness and fatigue. Severity of symptoms: At their worst the symptoms were moderate, in the emergency department the symptoms are unchanged. The patient has not experienced similar symptoms in the past. The patient has not recently seen a physician. Historical: - Allergies: 14:39 Augmentin; 14:39 Oxycodone; - Home Meds: 14:39 aspirin 81 mg Oral chew 1 tab PRN [Active]; buspirone 5 mg Oral tab daily for anxiety ch [Active]; gabapentin 100 mg Oral cap 2 caps [Active]; Hydrochlorothiazide Oral [Active]; lisinopril-hydrochlorothiazide 20-12.5 mg Oral tab 2 tab once daily [Active]; metformin 500 mg Oral Tb24 1 tab once daily [Active]; pramipexole 0.25 mg Oral tab at bedtime [Active]; rosuvastatin 10 mg Oral tab 1 tab once daily [Active]; - PMHx: 14:39 Anxiety; Diabetes - NIDDM; Hyperlipidemia; Hypertension; ch - PSHx: 14:39 Hernia repair; Knee surgery; Vasectomy; Elbow surgery; ch - Immunization history:: Adult Immunizations up to date, Flu vaccine is not up to date. - Social history:: Smoking status: Patient/guardian denies using tobacco. - Ebola Screening: : Patient negative for fever greater than or equal to 101.5 degrees Fahrenheit, and additional compatible Ebola Virus Disease symptoms Patient denies exposure to infectious person Patient denies travel to an Ebola-affected area in the 21 days before illness onset No symptoms or risks identified at this time. ROS: 16:04 ENT: Negative for injury, pain, and discharge, Neck: Negative for injury, pain, and jr8 swelling, Cardiovascular: Negative for chest pain, palpitations, and edema, Respiratory: Negative for shortness of breath, cough, wheezing, and pleuritic chest pain, Back: Negative for injury and pain, MS/Extremity: Negative for injury and deformity, Skin: Negative for injury, rash, and discoloration, Neuro: Negative for headache, weakness, numbness, tingling, and seizure. 16:04 Constitutional: Positive for fever, malaise. 16:04 Abdomen/GI: Positive for abdominal pain, Negative for nausea, vomiting, and diarrhea. 16:04 : Positive for urinary symptoms, hematuria, Negative for penile discharge, penile pain, testicular pain Exam: 16:04 Eyes: Pupils equal round and reactive to light, extra-ocular motions intact. Lids and jr8 lashes normal. Conjunctiva and sclera are non-icteric and not injected. Cornea within normal limits. Periorbital areas with no swelling, redness, or edema. ENT: Nares patent. No nasal discharge, no septal abnormalities noted. Tympanic membranes are normal and external auditory canals are clear. Oropharynx with no redness, swelling, or masses, exudates, or evidence of obstruction, uvula midline. Mucous membranes moist. Neck: Trachea midline, no thyromegaly or masses palpated, and no cervical lymphadenopathy. Supple, full range of motion without nuchal rigidity, or vertebral point tenderness. No Meningismus. Abdomen/GI: Soft, non-tender, with normal bowel sounds. No distension or tympany. No guarding or rebound. No evidence of tenderness throughout. Back: No spinal tenderness. No costovertebral tenderness. Full range of motion. Skin: Warm, dry with normal turgor. Normal color with no rashes, no lesions, and no evidence of cellulitis. MS/ Extremity: Pulses equal, no cyanosis. Neurovascular intact. Full, normal range of motion. Neuro: Awake and alert, GCS 15, oriented to person, place, time, and situation. Cranial nerves II-XII grossly intact. Motor strength 5/5 in all extremities. Sensory grossly intact. Cerebellar exam normal. Normal gait. 16:04 Cardiovascular: Rate: tachycardic, Rhythm: regular, Pulses: Pulses are 2+ in right radial artery and left radial artery. Heart sounds: normal, Edema: is not appreciated, JVD: is not appreciated. 16:04 Respiratory: the patient does not display signs of respiratory distress, Respirations: tachypnea, Breath sounds: are clear throughout, no bronchial sounds, no decreased breath sounds, no rales, rhonchi, no stridor, no wheezing. Vital Signs: 14:39 BP 125 / 77; Pulse 112; Resp 24; Temp 99.1(O); Pulse Ox 94% on R/A; Weight 145.15 kg; ch Height 5 ft. 11 in. (180.34 cm); Pain 0/10; 15:09 BP 114 / 75; Pulse 86; Resp 21; Pulse Ox 98% on R/A; Pain 3/10; ch 15:54 BP 120 / 74; Pulse 102; Resp 30 S; Temp 98.9(O); Pulse Ox 98% on R/A; Pain 2/10; ch 17:31 BP 116 / 76; Pulse 99; Resp 26; Temp 98.9; Pulse Ox 99% on R/A; Pain 2/10; ch 18:30 BP 116 / 69; Pulse 110; Resp 27; Temp 98.8(O); Pulse Ox 96% ; ch 19:46 BP 141 / 68; Pulse 111; Resp 16 S; Temp 98.3(O); Pulse Ox 99% on R/A; bb 14:39 Body Mass Index 44.63 (145.15 kg, 180.34 cm) ch MDM: 14:34 Patient medically screened. jr8 16:18 Differential diagnosis: appendicitis, UTI, urinary retention, prostatitis, urethritis, jr8 sepsis, colitis. Data reviewed: vital signs, nurses notes, lab test result(s), EKG, radiologic studies, plain films. Data interpreted: Pulse oximetry: on room air is 94 %. Interpretation: acceptable. Counseling: I had a detailed discussion with the patient and/or guardian regarding: the historical points, exam findings, and any diagnostic results supporting the discharge/admit diagnosis, lab results, radiology results, the need for further work-up and treatment in the hospital. Physician consultation: Reagan Davis MD was called at 16:18, was contacted at 16:18, regarding admission, to the telemetry unit. consult, patient's condition, and will see patient. 04/20 14:41 Order name: Basic Metabolic Panel; Complete Time: 15:50 [facility] 04/20 14:41 Order name: Blood Culture Adult (2) [facility] 04/20 14:41 Order name: CBC with Diff; Complete Time: 06:54 8 04/20 14:41 Order name: CPK; Complete Time: 15:50 8 04/20 14:41 Order name: Lactate; Complete Time: 15:50 [facility] 04/20 14:41 Order name: LFT's; Complete Time: 15:50 [facility] 04/20 14:41 Order name: Lipase; Complete Time: 15:50 [facility] 04/20 14:41 Order name: Procalcitonin; Complete Time: 16:10 [facility] 04/20 14:41 Order name: Protime (+inr); Complete Time: 15:50 [facility] 04/20 14:41 Order name: Ptt, Activated; Complete Time: 15:50 [facility] 04/20 14:41 Order name: Troponin (emerg Dept Use Only); Complete Time: 15:50 [facility] 04/20 14:41 Order name: Urine Microscopic Only; Complete Time: 16:10 [facility] 04/20 15:11 Order name: Glucose, Ancillary Testing; Complete Time: 15:26 EDMS 04/20 15:30 Order name: Urine Dipstick--Ancillary (enter results); Complete Time: 15:59 bd 04/20 14:41 Order name: Cath; Complete Time: 15:41 [facility] 04/20 14:41 Order name: Chest Single View XRAY; Complete Time: 15:50 [facility] 04/20 14:41 Order name: Accucheck; Complete Time: 15:00 [facility] 04/20 14:41 Order name: Cardiac monitoring; Complete Time: 14:42 [facility] 04/20 14:41 Order name: EKG - Nurse/Tech; Complete Time: 15:05 [facility] 04/20 14:41 Order name: IV Saline Lock - Large Bore; Complete Time: 15:05 [facility] 04/20 14:41 Order name: Labs collected and sent; Complete Time: 15:05 [facility] 04/20 14:41 Order name: O2 Per Protocol; Complete Time: 14:42 [facility] 04/20 14:41 Order name: O2 Sat Monitoring; Complete Time: 14:42 [facility] 04/20 14:41 Order name: Urine Dipstick-Ancillary (obtain specimen); Complete Time: 15:41 jr8 04/20 16:05 Order name: Urine Culture EDUT 04/20 18:57 Order name: CBC Smear Scan; Complete Time: 06:54 EDMS 04/20 19:19 Order name: Troponin (emerg Dept Use Only) 04/20 19:55 Order name: Troponin (Emerg Dept Use Only); Complete Time: 06:54 EDMS Administered Medications: 15:34 Drug: Rocephin 2 grams Route: IV; Rate: calculated rate; Site: right antecubital; jl7 15:45 Follow up: IV Status: Completed infusion; IV Intake: 10ml ch 15:34 Drug: NS 0.9% 1000 ml Route: IV; Rate: 1000 ml; Site: right antecubital; jl7 16:20 Follow up: IV Status: Completed infusion; IV Intake: 1000ml ch Point of Care Testing: Blood Glucose: 15:00 Blood Glucose: 142 mg/dL; jl7 Ranges: Critical Glucose Levels:Adult <50 mg/dl or >400 mg/dl <40 mg/dl or >180 mg/dl Disposition: 04/20/19 16:20 Hospitalization ordered by Reagan Davis for Inpatient Admission. Preliminary diagnosis are Severe sepsis without septic shock, Cystitis. - Bed requested for Telemetry/MedSurg (Inpatient). - Status is Inpatient Admission. bb - Condition is Fair. - Problem is new. - Symptoms have improved. UTI on Admission? Yes Addendum: 04/27/2019 07:25 Co-signature as Attending Physician, Tha Felton MD I agree with the assessment and c diaz plan of care. Signatures: Dispatcher [employer] [facility] Christel Bhardwaj Tanya Richardson, RN Tha Nino ch, MD MD cha Ballard, Brenda, RN RN Teo Sheets PA PA jr8 Isabella New RN RN jl7 Corrections: (The following items were deleted from the chart) 04/20 18:48 16:20 Hospitalization Ordered by Reagan Davis MD for Inpatient Admission. Preliminary bd diagnosis is Severe sepsis without septic shock; Cystitis. Bed requested for Telemetry/MedSurg (Inpatient). Status is Inpatient Admission. Condition is Fair. Problem is new. Symptoms have improved. UTI on Admission? Yes. jr8 20:03 18:48 04/20/2019 16:20 Hospitalization Ordered by Reagan Davis MD for Inpatient bb Admission. Preliminary diagnosis is Severe sepsis without septic shock; Cystitis. Bed requested for Telemetry/MedSurg (Inpatient). Status is Inpatient Admission. Condition is Fair. Problem is new. Symptoms have improved. UTI on Admission? Yes. bd
[2019-04-20 18:56] LABS: Blood Morphology Comment NOT SEEN (NOT SEEN); Platelet Estimate ADEQ; Urine White Blood Cell Casts OK
[2019-04-20] MEDS ORDERED: NA CHLORIDE 0.9% 1,000 ML IV SCH (19:57)
[2019-04-20] MEDS ORDERED: ACETAMINOPHEN 500 MG TAB PO PRN (19:57)
[2019-04-20] MEDS ORDERED: ONDANSETRON 4 MG/2 ML VIAL IV PRN (19:57)
[2019-04-20 22:27] VITALS: BMI 47.9
--- NOTE | 2019-04-21 04:06 | HP ---
Date of Admission: 04/20/2019 Chief Complaint: Generalized weakness, blood in the urine, recent fall. Code Status: Full. Primary Care Physician: POLO. History Of Present Illness: Patient is a 78-year-old male with past medical history of hypertension, diabetes, sleep apnea, restless legs syndrome, hyperlipidemia, generalized anxiety disorder, and atr ial fibrillation, who was in his usual state of health until day prior to admission when the patient had sudden onset of dizziness, generalized weakness, was having urinary retention type symptoms with abdominal distention in the suprapubic region, unable to completely empty his bladder. Patient also saw some gross hematuria. Patient also had a mechanical fall, was unable to get up, was down for yrn roximately 30 minutes, and called EMT and was lifted up. Patient did not come into the ER for evalua tion at that time. When the son checked on the patient the day of admission, he brought him into the ER for further evaluation. Patient's symptoms are constant, moderate, progressively worsening. Den ies any fever. Did report some chills and feeling warm and possible subjective fevers. His workup r evealed a white count of 18,000. INR was 2. Procalcitonin was 1.2. Lactate was 1.9. UA was positi ve with wbc's loaded with bacteria. Nitrite and leukocyte esterase were negative however. The patie nt was thought to be septic and was then referred for admission. He was given IV fluids, 1 L normal saline bolus, IV antibiotics and when the patient was seen in the ER, he was awake, alert, oriented x 3, in some mild distress. Past Medical History: Atrial fibrillation on Eliquis, diabetes mellitus type 2 with neuropathy, obst ructive sleep apnea on CPAP, restless legs syndrome, hypertension, hyperlipidemia, generalized anxiet y disorder. Surgical History: Knee surgery, replacement on both sides; hernia . Allergies: TO AUGMENTIN AND OXYCODONE AND HYDROCODONE. Medications: List reviewed. Social History: Patient quit smoking when he was 51 years old. Drinks alcohol rarely. , has a son. Good social support. Mostly independent in his activities of daily living. Family History: No premature history of coronary artery disease. Review of Systems: Ten-point system reviewed, negative except as per HPI. Physical Examination: Vital Signs: Blood pressure 125/77, pulse 112, respirations 24, temperature 99.1, O2 94% on room air . BMI is 44.6. General: Awake, alert, and oriented x3. Elderly male, ill-appearing, in some mild distress. HEENT: Normocephalic, atraumatic. PERRLA. EOMI. Moist mucous membranes. Oropharynx is clear. Po or dentition. Conjunctivae are anicteric. Neck: Supple. No JVD. Trachea midline. CV: S1, S2, irregularly irregular. Peripheral pulses present. Respiratory: Clear to auscultation bilaterally. No wheezing or stridor. No use of accessory muscle s. Gastrointestinal: Abdomen is soft, nontender, nondistended. Positive bowel sounds. No guarding or rigidity. Amaral catheter in place. Extremities: No clubbing or cyanosis. The patient has 2+ edema bilateral lower extremities up to th e calf. No calf tenderness. Neuro: Cranial nerves 2 through 12 intact grossly. No focal neurological deficit. Speech is normal . Psych: Mood is okay. Affect is full. Insight and judgment are good. Skin: Patient has multiple ecchymoses, especially in the upper extremities. Laboratory Data: UA shows negative nitrite, negative leukocyte esterase, 2+ blood, less than 5 rbc's 10-20 wbc, greater than 50 bacteria. Sodium 139, potassium 3.7, chloride 106, CO2 of 26, BUN 16, cr eatinine 1, glucose 129, lactate 1.9, calcium 8.3, total bilirubin 2.1, AST 61, ALT 59. CK level is 903. Troponin less than 0.02. Procalcitonin 1.2. INR 2.04. WBC 18.4, H and H 13.2 and 39.8, plate lets 181, neutrophils 89%. Chest x-ray shows left base is hazy, possible pneumonia overlying soft ti ssue. Assessment: A 78-year-old male with, 1.Sepsis. Patient is tachycardic, tachypneic. WBC count is 18.4 with left shift. Procalcitonin is elevated. Source of infection is UTI. We will start on sepsis bundle. Patient received IV fluids, 1 L normal saline bolus. We will continue with IV fluids at 75 mL/h. Blood cultures and urine cultu res have been obtained. Continue with IV Rocephin. 2.Acute cystitis without hematuria. No rbc's in the UA. Patient had gross hematuria yesterday. We will continue with Rocephin, follow up on urine cultures. 3.Urinary retention. Patient has Amaral catheter placed. We will need to follow up with Urology. D oes have benign prostatic hypertrophy. 4.Hyperbilirubinemia. 5.Acute rhabdomyolysis, nontraumatic, likely secondary to fall. We will repeat CPK level in a.m. N o acute kidney injury associated with the rhabdo. We will continue to monitor closely. 6.Atrial fibrillation, controlled ventricular rate on Eliquis. We will continue with metoprolol for rate control. 7.Essential hypertension, stable. 8.Mixed hyperlipidemia, continue statin. 9.Generalized anxiety disorder, continue BuSpar. 10.Restless legs syndrome. Continue the Paxil. 11.Obstructive sleep apnea. We will continue with CPAP at night. 12.Diabetes mellitus type 2 insulin requiring along with hyperglycemia, neuropathy, continue sliding scale insulin and monitor blood glucose levels. 13.Morbid obesity, BMI greater than 40. Plan: Admit the patient to Med-Surg, place as inpatient. Length of stay greater than 2 midnights. /ELIAZAR Voice ID: [id number]
[2019-04-21] MEDS ORDERED: PNEUMOCOCCAL VACCINE 0.5 ML IMVAC ONE ×2 (06:00→08:00)
[2019-04-21 06:55] LABS: Absolute Lymphocytes (CBC) 0.7 K/uL (0.7-4.9); Basophils % 0.4 % (0-1.3); Hematocrit 38.2 % (39.6-49.0); Lymphocytes % 5.1 % (15.3-44.8); MPV 9.8 fL (7.6-11.3); RBC Red Blood Cell Count 4.26 M/uL (4.33-5.43)
[2019-04-21 07:09] LABS: Albumin 2.5 g/dL (3.4-5.0); Bilirubin Total 1.2 mg/dL (0.2-1.0); Potassium 3.5 mmol/L (3.5-5.1); Protein, Total 5.9 g/dL (6.4-8.2)
[2019-04-21] MEDS ORDERED: BUSPIRONE HCL 5 MG TABLET PO PRN (08:18)
[2019-04-21] MEDS ORDERED: CEFTRIAXONE 1 GM/NS 50 ML 1 GM/50 ML BAG IV SCH (09:00)
--- NOTE | 2019-04-21 09:10 | RAD REPORT ---
EXAM DESCRIPTION: [place] Single View04/21/2019 9:02 am CLINICAL HISTORY: Chest pain COMPARISON: April 10, 2019 FINDINGS: The left base appears less prominent. Haziness on the prior exam likely secondary to over lying soft tissue Mild interstitial pulmonary opacities are present. The heart remains enlarged IMPRESSION: Mild CHF is suspected
[2019-04-21] MEDS: NA CHLORIDE 0.9% 1,000 ML IV SCH ×2 (09:27→11:44)
[2019-04-21] MEDS: CEFTRIAXONE/SWI 1gm 1 GM/10 ML SYR IVP SCH (09:27)
[2019-04-21] MEDS: APIXABAN 5 MG TABLET PO SCH ×2 (09:33→21:52)
[2019-04-21] MEDS: GABAPENTIN 100 MG CAP PO SCH (09:33)
[2019-04-21] MEDS: VIT D PO SCH (11:43)
[2019-04-21] MEDS ORDERED: FUROSEMIDE 20 MG/ 2ML VIAL IV ONE (12:47)
--- NOTE | 2019-04-21 12:53 | P.PN ---
Subjective Date of Service: 04/21/19 Primary Care Provider: [facility] Chief Complaint: Urinary complaints Subjective: Improving (Patient is slowly improving. Some shortness of breath noted this morning) Physical Examination - Vital Signs Temperature: 97.2 F Blood Pressure: 109/70 Pulse: 110 Respirations: 19 Pulse Ox (%): 95 - Physical Exam General: Alert, In no apparent distress, Oriented x3, Cooperative HEENT: Atraumatic Neck: Supple Respiratory: Expiratory wheezes Cardiovascular: Irregular heart rate/rhythm (Atrial fibrillation rate around 100 ) Gastrointestinal: Normal bowel sounds, Soft and benign, Non-distended, No tenderness, No masses, No rebound, No guarding Musculoskeletal: No erythema, No tenderness, No warmth Integumentary: No erythema, No warmth, No cyanosis Neurological: Normal speech, Normal strength at 5/5 x4 extr, Normal tone Urinary: Amaral catheter - Studies Laboratory Data (last 24 hrs) 04/20/19 15:00: PT 23.4 H, INR 2.04, APTT 34.9 04/20/19 15:00: WBC 18.4 H, Hgb 13.2 L, Hct 39.8, Plt Count 181 04/20/19 15:00: Sodium 139, Potassium 3.7, BUN 16, Creatinine 1.00, Glucose 129 H, Total Bilirubin 2.1 H, AST 61 H, ALT 59, Alkaline Phosphatase 80, Lipase 60 L Microbiology Data (last 24 hrs): 04/20/19 15:10 Blood - Blood Gram Stain - Final Medications List Reviewed: Yes Assessment & Plan Discharge Plan: Home Plan to discharge in: Greater than 2 days Physician Review Additional Text: Impression: Sepsis related to UTI with urinary retention, urine culture Gram negative rods noted Acute on chronic systolic CHF Acute rhabdomyolysis nontraumatic likely from fall Atrial fibrillation on chronic anti coagulation therapy Hypertension Hyperlipidemia Generalized anxiety disorder Restless leg syndrome Diabetes mellitus type 2 insulin dependent on hyperglycemia Obstructive sleep apnea on CPAP Morbid obesity BMI greater than 47 Plan: Sepsis related to UTI with urinary retention, urine culture Gram negative rods noted: Gram stain reviewed. Continue IV Rocephin. Await urine culture results. Patient given IV fluids Overnite. Some shortness of breath noted. Patient with history of systolic CHF. Will hold diuretic therapy at this time. Will provide IV Lasix. Continue monitor closely. Anticipate discharge in the next 3-5 days with clinical improvement. Acute on chronic diastolic CHF: Chest x-ray showed mild volume overload. Previous echo reviewed. Echocardiogram done 2019 showed EF above 60%. Will hold IV fluids at this time. Will provide Lasix. Will wean off oxygen to maintain sats above 90% Acute rhabdomyolysis nontraumatic likely from fall: Will continue to monitor closely. Will ambulate with physical therapy once improved. Atrial fibrillation on chronic anti coagulation therapy: Patient restarted on chronic anti coagulation therapy. Patient on metoprolol for rate control. Hypertension: Will adjust blood pressure medication accordingly. Hyperlipidemia: Continue medication. Generalized anxiety disorder: Continue with medication. Restless leg syndrome: Continue medication. Diabetes mellitus type 2 insulin dependent on hyperglycemia: Continue to monitor Accu-Cheks. Insulin sliding scale in place. Will continue to adjust medication. Obstructive sleep apnea on CPAP: Continue with CPAP at at night. Morbid obesity BMI greater than 47: Continue to address lifestyle modification education. Time Spent Managing Pts Care (In Minutes): 55
[2019-04-21] MEDS ORDERED: LACTULOSE 20 GM/30 ML UCUP PO PRN (13:45)
--- NOTE | 2019-04-21 14:07 | EKG ---
Test Date: 2019-04-20 Test Time: 15:11:58 Service Writer Advisor: GARETT MEASUREMENT RESULTS: Intervals: Rate: 96 MN: QRSD: 80 QT: 384 QTc: 485 Golden: P: MN: QRS: -16 T: 37 INTERPRETIVE STATEMENTS: Atrial fibrillation with premature ventricular or aberrantly conducted complexes Prolonged QT Abnormal ECG Compared to ECG 02/17/2019 10:55:23 Prolonged QT interval now present ST (T wave) deviation no longer present Electronically Signed On 04-21-19 14:06:19 RESIDENTIAL LEASING MANAGER by Juan Strickland
[2019-04-21] MEDS: METOPROLOL TAR 50 MG TAB PO SCH (17:04)
[2019-04-21] MEDS: DOCUSATE NA 100 MG CAP PO PRN (17:04)
[2019-04-21] MEDS ORDERED: HOME MED 1 EA UNK (Magnesium Oxide [Magnesium] 1 TAB) PO SCH (21:00)
[2019-04-21] MEDS: PRAMIPEXOLE 0.25 MG TAB PO SCH (21:52)
[2019-04-21] MEDS: ROSUVASTATIN 10 MG TAB PO SCH (21:52)
[2019-04-21] MEDS: MELATONIN 5 MG TABLET PO SCH (21:53)
[2019-04-21] MEDS: TAMSULOSIN 0.4 MG SR CAP PO SCH (21:53)
[2019-04-21] MEDS: COQ10 100 MG PO SCH (21:55)
[2019-04-21] MEDS: BUSPIRONE HCL 5 MG TABLET PO PRN (22:02)
[2019-04-22] MEDS: METOPROLOL TAR 50 MG TAB PO SCH (06:00)
[2019-04-22 06:11] LABS: Magnesium 2.3 mg/dL (1.8-2.4); Potassium 3.3 mmol/L (3.5-5.1)
[2019-04-22 06:13] LABS: Absolute Lymphocytes (CBC) 0.7 K/uL (0.7-4.9); Basophils % 0.5 % (0-1.3); Hematocrit 37.1 % (39.6-49.0); Lymphocytes % 8.4 % (15.3-44.8); RBC Red Blood Cell Count 4.17 M/uL (4.33-5.43)
[2019-04-22] MEDS: CEFTRIAXONE/SWI 1gm 1 GM/10 ML SYR IVP SCH (08:52)
[2019-04-22] MEDS: APIXABAN 5 MG TABLET PO SCH ×2 (08:53→21:49)
[2019-04-22] MEDS: GABAPENTIN 100 MG CAP PO SCH (08:53)
[2019-04-22] MEDS ORDERED: POTASSIUM 25 MEQ EFFERV TAB PO ONE ×2 (09:00→15:53)
[2019-04-22] MEDS: VIT D PO SCH (09:00)
[2019-04-22] MEDS: METOPROLOL TAR 25 MG TAB PO SCH ×2 (09:56→17:15)
--- NOTE | 2019-04-22 13:22 | RAD REPORT ---
EXAM DESCRIPTION: RAD - Chest Pa And Lat (2 Views) - 04/22/2019 1:16 pm CLINICAL HISTORY: Follow up CHF, CHF, shortness of breath COMPARISON: April 21 TECHNIQUE: PA and lateral views of the chest were obtained. FINDINGS: The lungs are normal volume. Prominent interstitial pattern is present. Heart size and sommer tral vasculature have decreased in prominence. No new lung parenchymal process. Trachea is midline. Small pleural effusions are still present. No acute bony finding noted. No aortic abnormality. IMPRESSION: Partial resolution of the CHF/volume overload pattern seen on prior day imaging. Small pleural effusions remain.
--- NOTE | 2019-04-22 13:37 | P.PN ---
Subjective Date of Service: 04/22/19 Primary Care Provider: [facility] Chief Complaint: Urinary complaints Subjective: Improving, Doing well Physical Examination - Vital Signs Temperature: 97.8 F Blood Pressure: 136/63 Pulse: 90 Respirations: 20 Pulse Ox (%): 96 - Physical Exam General: Alert, In no apparent distress, Oriented x3, Cooperative HEENT: Atraumatic Neck: Supple Respiratory: Clear to auscultation bilaterally, Normal air movement Cardiovascular: Irregular heart rate/rhythm (Atrial fibrillation rate controlled ) Gastrointestinal: Normal bowel sounds, Soft and benign, Non-distended, No tenderness, No masses, No rebound, No guarding Musculoskeletal: No tenderness, No warmth Neurological: Normal speech, Normal strength at 5/5 x4 extr, Normal tone - Studies Microbiology Data (last 24 hrs): 04/20/19 15:20 Clean Catch Urine [place] Count - Final >100,000 CFU/ML. 04/20/19 15:20 Clean Catch Urine - Final Proteus Mirabilis 04/20/19 15:10 Blood - Blood Gram Stain - Final Medications List Reviewed: Yes Assessment & Plan Discharge Plan: Home Plan to discharge in: 48 Hours Physician Review Additional Text: Impression: Sepsis related to UTI with urinary retention, urine culture Gram negative rods noted Acute on chronic systolic CHF Acute rhabdomyolysis nontraumatic likely from fall Atrial fibrillation on chronic anti coagulation therapy BMP Hypertension Hyperlipidemia Generalized anxiety disorder Restless leg syndrome Diabetes mellitus type 2 insulin dependent on hyperglycemia Obstructive sleep apnea on CPAP Morbid obesity BMI greater than 47 Plan: Sepsis related to UTI with urinary retention, urine culture shows Proteus: Will transition to Keflex. DC Rocephin. Continue monitor closely. Will have physical therapy assess ambulation. Patient may require home health and physical therapy at discharge. Patient may also require home oxygen. Dc Amaral. If patient continues with urinary retention, on Amaral in May need to be placed. Patient had elevated PSA. Flomax started. Patient will require urology evaluation as an outpatient. Anticipate improvement over the next 1-2 days. Acute on chronic diastolic CHF: Patient given Lasix yesterday. Will continue with Lasix orally. Will monitor closely. Wean off oxygen. Patient may require oxygen at discharge. Acute rhabdomyolysis nontraumatic likely from fall: Will continue to monitor closely. Will ambulate with physical therapy once improved. Atrial fibrillation on chronic anti coagulation therapy: Patient restarted on chronic anti coagulation therapy. Patient on metoprolol for rate control. Hypertension: Medications have been adjusted. BPH: Prostate level elevated. Patient has been started on Flomax. Will transition off urinary catheter. If with retention well place catheter back. Patient will need urology evaluation as an outpatient. Hyperlipidemia: Continue medication. Generalized anxiety disorder: Continue with medication. Restless leg syndrome: Continue medication. Diabetes mellitus type 2 insulin dependent on hyperglycemia: Continue to monitor Accu-Cheks. Insulin sliding scale in place. Will continue to adjust medication. Obstructive sleep apnea on CPAP: Continue with CPAP at at night. Morbid obesity BMI greater than 47: Continue to address lifestyle modification education. Time Spent Managing Pts Care (In Minutes): 55
[2019-04-22] MEDS: COQ10 100 MG PO SCH ×2 (21:00)
[2019-04-22] MEDS: ROSUVASTATIN 10 MG TAB PO SCH (21:49)
[2019-04-22] MEDS: TAMSULOSIN 0.4 MG SR CAP PO SCH (21:49)
[2019-04-22] MEDS: MELATONIN 5 MG TABLET PO SCH (21:50)
[2019-04-22] MEDS: CEPHALEXIN 500 MG CAP PO SCH (21:50)
[2019-04-22] MEDS: PRAMIPEXOLE 0.25 MG TAB PO SCH (21:50)
[2019-04-22] MEDS: BUSPIRONE HCL 5 MG TABLET PO PRN (21:57)
[2019-04-23 05:07] LABS: Absolute Lymphocytes (CBC) 1.3 K/uL (0.7-4.9); Basophils % 0.7 % (0-1.3); Hematocrit 37.8 % (39.6-49.0); Lymphocytes % 15.5 % (15.3-44.8); MPV 9.2 fL (7.6-11.3); RBC Red Blood Cell Count 4.22 M/uL (4.33-5.43)
[2019-04-23] MEDS: METOPROLOL TAR 25 MG TAB PO SCH (05:14)
[2019-04-23 05:19] LABS: BUN Blood Urea Nitrogen 16 mg/dL (7-18); Bicarbonate 31 mmol/L (21-32); Glucose Level 126 mg/dL (74-106); Magnesium 2.3 mg/dL (1.8-2.4); Potassium 3.5 mmol/L (3.5-5.1); Sodium Level 141 mmol/L (136-145)
[2019-04-23 06:14] VITALS: O2SAT 96
[2019-04-23] MEDS ORDERED: METOPROLOL TAR 25 MG TAB PO ONE (08:06)
[2019-04-23] MEDS ORDERED: FUROSEMIDE 20 MG TABLET PO SCH (09:00)
[2019-04-23] MEDS: DOCUSATE NA 100 MG CAP PO PRN (09:11)
[2019-04-23] MEDS: GABAPENTIN 100 MG CAP PO SCH (09:13)
[2019-04-23] MEDS: APIXABAN 5 MG TABLET PO SCH (09:14)
[2019-04-23] MEDS: VIT D PO SCH (09:15)
[2019-04-23] MEDS: CEPHALEXIN 500 MG CAP PO SCH (09:15)
--- NOTE | 2019-04-23 11:33 | P.DS ---
Admission Date: 04/20/19 Discharge Date: 04/23/19 [facility] Care Provider: [facility] Disposition: DC HOME/HOME HEALTH CARE Discharge Condition: GOOD Reason for Admission: Urinary complaints Consultations: none Procedures: Follow up CXR: FINDINGS: The lungs are normal volume. Prominent interstitial pattern is present. Heart size and central vasculature have decreased in prominence. No new lung parenchymal process. Trachea is midline. Small pleural effusions are still present. No acute bony finding noted. No aortic abnormality. IMPRESSION: Partial resolution of the CHF/volume overload pattern seen on prior day imaging. Small pleural effusions remain. 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 Patient reported dizziness, weakness and urinary retention. Patient found to have UTI with possible sepsis. Patient was admitted for further evaluation and treatment. Hospital Course: Patient presented with sepsis related to UTI a with urinary retention. Patient was given IV fluids, antibiotic therapy. Patient did well then the course of his stay. Patient was found to have urine culture positive for Proteus. Blood cultures negative. Patient significantly improved. At discharge patient no longer has urinary retention. Amaral has been removed. PSA was found to be elevated. Patient likely with underlying BPH. At discharge patient will continue with Keflex 500 mg twice daily for 7 days. Recommend to recheck urine culture after that time to monitor resolution. Recommend follow up with urology as an outpatient to further address his his elevated PSA. Patient will continue with Flomax. Education on UTI and BPH will be provided. Prior to discharge home health and physical therapy will be arranged. The patient also had acute on chronic diastolic CHF related to IV fluids given. Patient was given Lasix. At discharge this has improved. Patient without significant shortness of breath. Patient will continue with a 1500 cc per day fluid restriction and low-salt diet. At discharge patient will continue with his current medication of hydrochlorothiazide. Further adjustment in medication can be done by cardiology. May need to consider discontinuing hydrochlorothiazide and switch to Lasix in the future. Will recommend follow up with Cardiology so that patient may consider cardiac rehab. Patient with acute rhabdomyolysis. Patient had a recent fall. This improved with IV fluid hydration. At discharge patient will be provided home health and physical therapy. Patient with atrial fibrillation on chronic anti coagulation therapy. This has remained stable. At discharge he will continue with his current medications of metoprolol 50 mg 1 pill twice daily and Eliquis 5 mg 1 pill twice daily. Recommend follow up with cardiology in 1-2 weeks to follow up this hospitalization. Patient with hypertension. At discharge he will continue with metoprolol 50 mg 1 pill twice daily and lisinopril hydrochlorothiazide 20/12.5 mg daily. Recommend to monitor blood pressure closely. Further adjustment can be done by his PCP. Patient with hyperlipidemia. At discharge he will continue with his current medication Crestor 10 mg daily. Patient with generalized anxiety disorder. Patient continue with his medication buspirone 5 mg daily as needed for anxiety. Patient with a restless leg syndrome. At discharge he will continue with medication Mirapex 0.25 mg at night. Patient with diabetes mellitus type 2 non insulin-dependent with hyperglycemia. This has remained stable. At discharge he will continue with his current medication metformin 500 mg twice daily. Further adjustment can be done by his PCP. Patient with obstructive sleep apnea on CPAP. Patient will continue with CPAP at night. Patient with diabetic neuropathy. At discharge he will continue with gabapentin 200 mg daily. During the course of the stay patient was able to use his own medications. Vital Signs/Physical Exam: Temp Pulse Resp BP Pulse Ox 97.8 F 127 H 20 132/69 96 04/23/19 08:00 04/23/19 09:13 04/23/19 08:00 04/23/19 09:13 04/23/19 08:00 General: Alert, In no apparent distress, Oriented x3, Cooperative HEENT: Atraumatic Neck: Supple Respiratory: Clear to auscultation bilaterally, Normal air movement Cardiovascular: Irregular heart rate/rhythm (Atrial fibrillation) Gastrointestinal: Normal bowel sounds, Soft and benign, Non-distended, No tenderness, No masses, No rebound, No guarding Musculoskeletal: No erythema, No tenderness, No warmth Integumentary: No tenderness/swelling, No erythema, No warmth, No cyanosis Neurological: Normal strength at 5/5 x4 extr, Normal tone, Normal affect Laboratory Data at Discharge: WBC 8.3 K/uL (4.3-10.9) 04/23/19 04:20 Hgb 12.4 g/dL (13.6-17.9) L 04/23/19 04:20 Hct 37.8 % (39.6-49.0) L 04/23/19 04:20 Plt Count 181 K/uL (152-406) 04/23/19 04:20 PT 23.4 SECONDS (9.5-12.5) H 04/20/19 15:00 INR 2.04 04/20/19 15:00 APTT 34.9 SECONDS (24.3-36.9) 04/20/19 15:00 Sodium 141 mmol/L (136-145) 04/23/19 04:20 Potassium 3.5 mmol/L (3.5-5.1) 04/23/19 04:20 BUN 16 mg/dL (7-18) 04/23/19 04:20 Creatinine 0.72 mg/dL (0.55-1.3) 04/23/19 04:20 Glucose 126 mg/dL (74-106) H 04/23/19 04:20 Magnesium 2.3 mg/dL (1.8-2.4) 04/23/19 04:20 Total Bilirubin 1.2 mg/dL (0.2-1.0) H 04/21/19 05:39 AST 49 U/L (15-37) H 04/21/19 05:39 ALT 49 U/L (12-78) 04/21/19 05:39 Alkaline Phosphatase 80 U/L (45-117) 04/21/19 05:39 Lipase 60 U/L (73-393) L 04/20/19 15:00 Home Medications: Buspirone HCl [Buspar*] 5 mg PO DAILYPRN PRN 06/04/13 Metformin HCl [Glucophage*] 500 mg PO BID 06/04/13 Gabapentin [Neurontin*] 200 mg PO DAILY 02/17/19 Pramipexole [Mirapex*] 0.25 mg PO BEDTIME 02/17/19 Rosuvastatin [Crestor*] 10 mg PO BEDTIME 02/17/19 Apixaban [Eliquis] 5 mg PO BID #60 tablet 02/18/19 Metoprolol Tartrate 50 mg PO BID #30 tablet 02/18/19 Cq10 100 mg PO BEDTIME 04/20/19 Lisinopril/Hydrochlorothiazide [Lisinopril-Hctz 20-12.5 mg Tab] 1 tab PO DAILY 04/20/19 Magnesium Oxide [Magnesium] 1 tab PO BEDTIME 04/20/19 Melatonin 1 tab PO BEDTIME 04/20/19 Potassium Gluconate [Potassium] 99 mg PO DAILY 04/20/19 Vit D 3 25 mcg PO DAILY 04/20/19 Cephalexin [Keflex*] 500 mg PO BID #14 cap 04/23/19 Docusate [Colace Cap*] 100 mg PO DAILY PRN #30 cap 04/23/19 Tamsulosin [Flomax*] 0.4 mg PO BEDTIME #30 cap 04/23/19 New Medications: Cephalexin [Keflex*] 500 mg PO BID #14 cap Docusate [Colace Cap*] 100 mg PO DAILY PRN #30 cap PRN Reason: Constipation Tamsulosin [Flomax*] 0.4 mg PO BEDTIME #30 cap Patient Discharge Instructions: 1. Recommend follow up with PCP in 1 week to follow up this hospitalization. 2. Patient presented with sepsis related to UTI a with urinary retention. Patient was given IV fluids, antibiotic therapy. Patient did well then the course of his stay. Patient was found to have urine culture positive for Proteus. Blood cultures negative. Patient significantly improved. At discharge patient no longer has urinary retention. Amaral has been removed. PSA was found to be elevated. Patient likely with underlying BPH. At discharge patient will continue with Keflex 500 mg twice daily for 7 days. Recommend to recheck urine culture after that time to monitor resolution. Recommend follow up with urology as an outpatient to further address his his elevated PSA. Patient will continue with Flomax. Education on UTI and BPH will be provided. Prior to discharge home health and physical therapy will be arranged. 3. The patient also had acute on chronic diastolic CHF related to IV fluids given. Patient was given Lasix. At discharge this has improved. Patient without significant shortness of breath. Patient will continue with a 1500 cc per day fluid restriction and low-salt diet. At discharge patient will continue with his current medication of hydrochlorothiazide. Further adjustment in medication can be done by cardiology. May need to consider discontinuing hydrochlorothiazide and switch to Lasix in the future. Will recommend follow up with Cardiology so that patient may consider cardiac rehab. 4. Patient with acute rhabdomyolysis. Patient had a recent fall. This improved with IV fluid hydration. At discharge patient will be provided home health and physical therapy. 5. Patient with atrial fibrillation on chronic anti coagulation therapy. This has remained stable. At discharge he will continue with his current medications of metoprolol 50 mg 1 pill twice daily and Eliquis 5 mg 1 pill twice daily. Recommend follow up with cardiology in 1-2 weeks to follow up this hospitalization. 6. Patient with hypertension. At discharge he will continue with metoprolol 50 mg 1 pill twice daily and lisinopril hydrochlorothiazide 20/ 12.5 mg daily. Recommend to monitor blood pressure closely. Further adjustment can be done by his PCP. 7. Patient with hyperlipidemia. At discharge he will continue with his current medication Crestor 10 mg daily. 8. Patient with generalized anxiety disorder. Patient continue with his medication buspirone 5 mg daily as needed for anxiety. 9. Patient with a restless leg syndrome. At discharge he will continue with medication Mirapex 0.25 mg at night. 10. Patient with diabetes mellitus type 2 non insulin- dependent with hyperglycemia. This has remained stable. At discharge he will continue with his current medication metformin 500 mg twice daily. Further adjustment can be done by his PCP. 11. Patient with obstructive sleep apnea on CPAP. Patient will continue with CPAP at night. 12. Patient with diabetic neuropathy. At discharge he will continue with gabapentin 200 mg daily. 13. During the course of the stay patient was able to use his own medications. Diet: ADA Activity: Ad kristen Time spent managing pt's care (in minutes): 5
[2019-04-23 13:22] VITALS: BP 115/64; TEMP 98
[2019-04-23] MEDS ORDERED: METOPROLOL TAR 50 MG TAB PO SCH (18:00)
== END 2019-04-23 14:36 | disposition home health service (06) | DRG 871 ==
LOC: ER 14:03 → ERHOLD 16:52 → 2ND 19:48
PROVIDERS: ADMIT Family Medicine; ATTEND Family Medicine
DX: A41.9 Sepsis, unspecified organism (principal); I50.23 Acute on chronic systolic (congestive) heart failure; N39.0 Urinary tract infection, site not specified; M62.82 Rhabdomyolysis; B96.4 Proteus (mirabilis) (morganii) as the cause of diseases classified elsewhere; I11.0 Hypertensive heart disease with heart failure; I48.91 Unspecified atrial fibrillation; N40.1 Benign prostatic hyperplasia with lower urinary tract symptoms; R33.8 Other retention of urine; G25.81 Restless legs syndrome; G47.33 Obstructive sleep apnea (adult) (pediatric); E78.5 Hyperlipidemia, unspecified; F41.9 Anxiety disorder, unspecified; E11.65 Type 2 diabetes mellitus with hyperglycemia; Z79.01 Long term (current) use of anticoagulants
CPT/HCPCS: 36415; 51702; 71045; 71046; 80048; 80053; 80076; 81003; 81015; 82550; 82947; 83605; 83690; 83735; 84132; 84145; 84484; 85025; 85610; 85730; 87040; 87077; 87086; 87088; 87186; 87205; 93005; 94660; 94760; 96361; 96374; 97161; 99285; G0103; J0696; J1940; J7030